=== PATIENT | female | born 1950 | race Hispanic/Latino ===

== ENCOUNTER 2017-09-06 20:15 | Emergency (ER) | payer MEDICAID, OTHER ==
[2017-09-06 21:34] LABS: ALB/GLOB RATIO 1.3 (1.0-2.1); ALBUMIN 3.7 g/dL (3.5-5.0); ALT/SGPT 48 U/L (9-52); AST/SGOT 25 U/L (14-36); BASO % 0.9 % (0.0-2.0); BLOOD UREA NITROGEN 20 mg/dl (7-17); EOS # 0.2 K/uL (0.0-0.7); EOS % 3.7 % (0.0-4.0); GFR AFRICAN-AMERICAN > 60; GFR NON-AFRICAN AMERICAN > 60; HEMOGLOBIN 12.7 g/dL (12.0-16.0); LYMPH # 1.5 K/uL (1.0-4.3); LYMPH % 27.9 % (20.0-40.0); MEAN CORPUSCULAR HEMOGLOBIN 31.4 pg (27.0-31.0); MEAN CORPUSCULAR HGB CONC 33.8 g/dL (33.0-37.0); MEAN PLATELET VOLUME 9.1 fl (7.2-11.7); MONO # 0.4 K/uL (0.0-0.8); MONO % 7.2 % (0.0-10.0); NEUT # 3.2 K/uL (1.8-7.0); NEUT % 60.3 % (50.0-75.0); RBC 4.04 Mil/uL (3.80-5.20); RED CELL DISTRIBUTION WIDTH 13.4 % (11.5-14.5); WHITE BLOOD COUNT 5.4 K/uL (4.8-10.8)
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
[2017-09-06 22:31] LABS: BARBITURATES, UR NEGATIVE (NEGATIVE); BENZODIAZEPINES, UR NEGATIVE (NEGATIVE); OPIATES, UR NEGATIVE (NEGATIVE); PHENCYCLIDINE, UR NEGATIVE (NEGATIVE)
--- NOTE | 2017-09-07 00:47 | ED PDOC ---
- Laboratory Results Result Diagrams: 09/06/17 21:15 09/06/17 21:15 - ECG O2 Sat by Pulse Oximetry: 97 (RA) Pulse Ox Interpretation: Normal Medical Decision Making Medical Decision Making: Time: 31 Patient signed out to me by Dr. Molina pending crisis evaluation, ER disposition. Time: 57 Patient seen and evaluated by crisis team, plan [place] [facility] [place]. Time: 535 Patient seen and evaluated by [facility] [place] Marcie and patient accepted for admission by Dr. Romero, psychiatrist at [facility] [place]. Patient currently [place] [facility] [place]. Time: [address] Patient signed out to Dr. Live pending [facility] [place]. Scribe Attestation: Documented by Hui Moreno, acting as a scribe for Juan Lloyd MD. Provider Scribe Attestation: All medical record entries made by the Scribe were at my direction and personally dictated by me. I have reviewed the chart and agree that the record accurately reflects my personal performance of the history, physical exam, medical decision making, and the department course for this patient. I have also personally directed, reviewed, and agree with the discharge instructions and disposition. Disposition - Clinical Impression Clinical Impression: Anxiety - POA Present On Arrival: None - Disposition Disposition: Transfer of Care Disposition Time: 07:00 Condition: STABLE Instructions: Anxiety, Adult (DC) Forms: [employer] (Polish) Patient Signed Over To: Karen Live
--- NOTE | 2017-09-07 08:38 | RAD ---
HISTORY: bizarre behavior COMPARISON: 09/06/2017 FINDINGS: LUNGS: No active pulmonary disease. PLEURA: No significant pleural effusion identified, no pneumothorax apparent. CARDIOVASCULAR: Normal. OSSEOUS STRUCTURES: No significant abnormalities. VISUALIZED UPPER ABDOMEN: Normal. OTHER FINDINGS: None. IMPRESSION: No active disease.
--- NOTE | 2017-09-07 14:07 | CARD ---
APPROVED REPORT EKG Measurement Heart [id number] <Conclusion> Normal sinus rhythm Possible Left atrial enlargement Borderline ECG
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
[2017-09-08 00:29] VITALS: BP 98/66; PULSE 66; RESP 18; TEMP 97.4; O2SAT 96
== END 2017-09-08 02:08 | disposition short-term general hospital (02) ==
LOC: H.ER 20:15
DX: F41.9 Anxiety disorder, unspecified (principal); F17.200 Nicotine dependence, unspecified, uncomplicated; Z86.59 Personal history of other mental and behavioral disorders; Z91.19 Patient's noncompliance with other medical treatment and regimen